=== PATIENT | female | born 1960 | race Caucasian/White ===

== ENCOUNTER 2018-03-01 19:43 | Emergency (ER) | payer OTHER, SELFPAY ==
[2018-03-01] MEDS ORDERED: HYDROCODONE/ACETAMINOPHEN 10/325 MG TAB ONE (20:17)
== END 2018-03-01 21:45 | disposition home or self-care (01) ==
LOC: EDH 19:43
DX: M51.36 Other intervertebral disc degeneration, lumbar region (principal); E78.5 Hyperlipidemia, unspecified; I10 Essential (primary) hypertension; J44.9 Chronic obstructive pulmonary disease, unspecified; Z90.710 Acquired absence of both cervix and uterus; Z98.890 Other specified postprocedural states; Z88.8 Allergy status to other drugs, medicaments and biological substances; Z79.82 Long term (current) use of aspirin; Z79.899 Other long term (current) drug therapy; Z72.0 Tobacco use
CPT/HCPCS: 72131; 93005

== ENCOUNTER 2020-04-06 02:13 | Inpatient (IN) | payer SELFPAY ==
[~2020-04-06] VITALS: Ht 157.5 cm; Wt 94.3 kg
[2020-04-06] MEDS ORDERED: MORPHINE SULFATE 2 MG/ML 1ML SYG ONE ×2 (02:24→07:55)
[2020-04-06 02:30] LABS: BASOPHILS % (AUTO) 0.7 % (0.0-5.0); EOSINOPHILS % (AUTO) 1.8 % (0.0-8.0); HEMATOCRIT 39.4 % (36-48); LYMPHOCYTES % (AUTO) 35.2 % (21.0-51.0); MEAN CORPUSCULAR HEMOGLOBIN 29.2 pg (27.0-33.0); MEAN CORPUSCULAR VOLUME 91.2 fL (79-99); MONOCYTES % (AUTO) 9.4 % (3.0-13.0); NEUTROPHILS % (AUTO) 52.5 % (40.0-77.0); PLATELET COUNT (AUTO) 311 K/uL (130-400); RED BLOOD CELL COUNT(AUTO) 4.32 MIL/uL (4.00-5.50); RED CELL DISTRIBUTION WIDTH 13.3 % (11.0-15.5); WHITE BLOOD COUNT (AUTO) 11.4 K/uL (4.8-10.8)
[2020-04-06 02:43] LABS: CREATININE 0.9 mg/dL (0.5-1.5); POTASSIUM 3.7 mmol/L (3.5-5.1)
[2020-04-06 02:48] LABS: ALBUMIN 3.1 g/dL (3.5-5.0); BILIRUBIN,TOTAL 0.2 mg/dL (0.2-1.0); TOTAL PROTEIN, SERUM 7.5 g/dL (6.0-8.3)
[2020-04-06 02:58] LABS: INR 0.88 (0.85-1.15); PARTIAL THROMBOPLASTIN TIME 28.2 SEC (26.3-35.5); PROTHROMBIN TIME 9.5 SEC (9.6-11.6)
[2020-04-06] MEDS ORDERED: IOHEXOL-350 75 ML VIAL IV ONE (03:35)
[2020-04-06] MEDS ORDERED: AZITHROMYCIN 500MG+NS 250ML 250 ML IV ONE (04:36)
[2020-04-06] MEDS ORDERED: CEFTRIAXONE SODIUM 1 GM ONE (04:36)
[2020-04-06 05:22] LABS: APPEARANCE,URINE Clear (CLEAR); BILIRUBIN,URINE Negative (NEGATIVE); COLOR,URINE Yellow (YELLOW); GLUCOSE, URINE (UA) Negative (NEGATIVE); KETONES,URINE Negative (NEGATIVE); LEUKOCYTE ESTERASE ,URINE Negative (NEGATIVE); NITRATE,URINE Negative (NEGATIVE); OCCULT BLOOD,URINE Negative (NEGATIVE); PH,URINE 5.5 (5.0-8.0); PROTEIN,URINE Negative (NEGATIVE); UROBILINOGEN,URINE 0.2 mg/dL (0.2-1.0)
[2020-04-06] MEDS ORDERED: GLUCAGON 1MG KIT 1 MG ML IM PRN (07:15)
[2020-04-06] MEDS ORDERED: DEXTROSE 50%-WATER 50 ML DISP.SYRIN IV PRN (07:15)
[2020-04-06] MEDS ORDERED: ACETAMINOPHEN 325 MG TAB PO PRN (07:15)
[2020-04-06] MEDS ORDERED: MORPHINE SULFATE 2 MG/ML 1ML SYG IVP PRN (07:15)
[2020-04-06] MEDS ORDERED: ENOXAPARIN SODIUM 30 MG/0.3 ML SQ ONE (09:56)
[2020-04-06] MEDS ORDERED: IBUPROFEN 800 MG TAB ONE (15:21)
[2020-04-06 15:32] VITALS: BP 126/76
[2020-04-06] MEDS: ENOXAPARIN SODIUM 30 MG/0.3 ML SQ SCH (16:00)
[2020-04-06] MEDS: INSULIN R PO SS1 SQ SCH ×4 (16:00→21:00)
[2020-04-06] MEDS ORDERED: LEVO-173 PO (19:13)
[2020-04-06] MEDS ORDERED: METO50TA18 PO (19:13)
[2020-04-06] MEDS ORDERED: SIMV-46 PO (19:13)
[2020-04-06] MEDS ORDERED: METO25TA6 PO (19:13)
[2020-04-06] MEDS ORDERED: ONDANSETRON 4 MG TABLET PO PRN (19:30)
[2020-04-06 20:20] VITALS: BP 137/65
--- NOTE | 2020-04-06 20:50 | NUR ---
Dr. Back came in to see patient, examined her and then gave orders to resume all home medications. No other orders received.
[2020-04-06] MEDS ORDERED: METOPROLOL TARTRATE 25 MG TAB PO SCH (21:00)
[2020-04-06] MEDS ORDERED: NON-FORMULARY MEDICATION 1 EACH (Simvastatin 40 MG) PO SCH (21:00)
[2020-04-06] MEDS ORDERED: SIMVASTATIN 20 MG TABLET PO SCH (21:15)
[2020-04-06 23:42] VITALS: BP 116/58
[2020-04-07 03:59] VITALS: BP 100/54
[2020-04-07] MEDS ORDERED: IBUP-2071 PO (04:42)
[2020-04-07] MEDS ORDERED: IBUPROFEN 800 MG TAB ONE (04:44)
[2020-04-07] MEDS ORDERED: IBUPROFEN 800 MG TAB PO PRN (04:45)
[2020-04-07] MEDS: INSULIN R PO SS1 SQ SCH ×3 (05:29→16:30)
[2020-04-07 05:59] LABS: HEMATOCRIT 37.6 % (36-48); MEAN CORPUSCULAR HEMOGLOBIN 28.7 pg (27.0-33.0); MEAN CORPUSCULAR HGB CONC 31.6 g/dL (32.0-36.0); MEAN CORPUSCULAR VOLUME 90.8 fL (79-99); RED BLOOD CELL COUNT(AUTO) 4.14 MIL/uL (4.00-5.50); RED CELL DISTRIBUTION WIDTH 13.4 % (11.0-15.5); WHITE BLOOD COUNT (AUTO) 10.2 K/uL (4.8-10.8)
[2020-04-07] MEDS ORDERED: AZITHROMYCIN 500MG+NS 250ML 250 ML IV SCH (06:00)
[2020-04-07] MEDS ORDERED: CEFTRIAXONE SODIUM 1 GM IVP SCH (06:00)
[2020-04-07 06:03] LABS: HEMOGLOBIN A1C 6.1 % (4.0-6.0)
[2020-04-07 06:13] LABS: CREATININE 0.8 mg/dL (0.5-1.5); MAGNESIUM 1.9 mg/dL (1.80-2.40)
[2020-04-07] MEDS ORDERED: LEVOTHYROXINE 125 MCG TABLET PO SCH (06:30)
[2020-04-07 08:14] VITALS: BP 114/62
[2020-04-07] MEDS: ENOXAPARIN SODIUM 30 MG/0.3 ML SQ SCH (08:27)
[2020-04-07] MEDS ORDERED: METOPROLOL TARTRATE 50 MG TAB PO SCH (09:00)
[2020-04-07 12:00] VITALS: BP 116/49
[2020-04-07 16:37] VITALS: BP 117/74
--- NOTE | 2020-04-07 16:38 | NUR ---
INITIAL: Met with pt this afternoon to discuss dcp. pt mentions that she lives w her spouse. Prior to admission she was independent w ambulation and ADLs. She is able to drive where needed. Pt mentions that she feels safe and comfortable to return home at ct. Provided low income packet. CM to continue to follow and wait for Md recommendations. Addendum: 04/07/20 at 1639 by RUBEN CLARK Amended: Links added.
--- NOTE | 2020-04-09 14:30 | NUR ---
TRANSITIONAL CARE - POST-DISCHARGE NOTE Spoke to patient at number on file. As per Mrs Victoria, she is "doing awesome." She states she is taking her discharge medications as ordered. According to Mrs Victoria, she is waiting for Dr Smith to call her for follow up. Mrs Victoria does not report CP, SOB, N/V/D, fevers/chills.
== END 2020-04-07 17:05 | disposition home or self-care (01) | DRG 194 ==
LOC: EDH 02:13 → EDHIP 02:14 → 3DH 14:52
PROVIDERS: ADMIT Internal Medicine; ATTEND Internal Medicine
DX: J18.9 Pneumonia, unspecified organism (principal); J44.0 Chronic obstructive pulmonary disease with (acute) lower respiratory infection; E03.9 Hypothyroidism, unspecified; E78.5 Hyperlipidemia, unspecified; F17.200 Nicotine dependence, unspecified, uncomplicated; I73.9 Peripheral vascular disease, unspecified; I10 Essential (primary) hypertension; K21.9 Gastro-esophageal reflux disease without esophagitis; Z88.8 Allergy status to other drugs, medicaments and biological substances
CPT/HCPCS: 36415; 71045; 71275; 80048; 80053; 81003; 82550; 82948; 83036; 83735; 84484; 85025; 85027; 85610; 85730; 87040; 93005; G0378; J0456; J0696; J1650; Q9967

== ENCOUNTER 2022-10-14 18:38 | Inpatient (IN) | payer OTHER ==
[~2022-10-14] VITALS: Ht 160 cm; Wt 93.0 kg
[~2022-10-14 18:38] MED LIST: IBUP-2071 PO; LEVO-173 PO; METO25TA6 PO; METO50TA18 PO; SIMV-46 PO
[2022-10-14 19:58] LABS: BASOPHILS % (AUTO) 0.7 % (0.0-5.0); EOSINOPHILS % (AUTO) 1.5 % (0.0-8.0); HEMATOCRIT 41.2 % (36-48); LYMPHOCYTES % (AUTO) 36.3 % (21.0-51.0); MEAN CORPUSCULAR HEMOGLOBIN 28.6 pg (27.0-33.0); MEAN CORPUSCULAR HGB CONC 32.3 g/dL (32.0-36.0); MEAN CORPUSCULAR VOLUME 88.6 fL (79-99); MONOCYTES % (AUTO) 9.8 % (3.0-13.0); NEUTROPHILS % (AUTO) 51.3 % (40.0-77.0); PLATELET COUNT (AUTO) 315 K/uL (130-400); RED BLOOD CELL COUNT(AUTO) 4.65 MIL/uL (4.00-5.50); RED CELL DISTRIBUTION WIDTH 14.1 % (11.0-15.5); WHITE BLOOD COUNT (AUTO) 11.3 K/uL (4.8-10.8)
[2022-10-14 20:02] LABS: APPEARANCE,URINE CLEAR (CLEAR); BILIRUBIN,URINE NEGATIVE (NEGATIVE); COLOR,URINE COLORLESS (YELLOW); GLUCOSE, URINE (UA) NEGATIVE (NEGATIVE); KETONES,URINE NEGATIVE (NEGATIVE); LEUKOCYTE ESTERASE ,URINE NEGATIVE Leu/uL (NEGATIVE); NITRATE,URINE NEGATIVE (NEGATIVE); OCCULT BLOOD,URINE NEGATIVE (NEGATIVE); PH,URINE 6.5 (5.0-8.0); PROTEIN,URINE NEGATIVE (NEGATIVE); UROBILINOGEN,URINE 0.2 mg/dL (0.2-1.0)
[2022-10-14 20:04] LABS: RBC,URINE 0-1 /HPF (0-1); SQUAMOUS EPITHELIAL CELL,UR RARE /HPF (0-2); WBC,URINE 0-1 /HPF (0-1)
[2022-10-14 20:06] LABS: CREATININE 0.8 mg/dL (0.5-1.5)
[2022-10-14 20:18] LABS: ALBUMIN 3.6 g/dL (3.5-5.0); TOTAL PROTEIN, SERUM 7.4 g/dL (6.0-8.3)
[2022-10-14] MEDS ORDERED: NITROGLYCERIN 1GM OINT 1 INCH/1GM TD ONE (23:30)
[2022-10-14] MEDS ORDERED: MORPHINE 2 MG SYG IVP ONE (23:30)
[2022-10-14] MEDS ORDERED: ASPIRIN 325MG TAB PO ONE (23:30)
[2022-10-14] MEDS ORDERED: ACETAMINOPHEN 500 MG TABLET ONE (23:42)
[2022-10-15] MEDS ORDERED: ACETAMINOPHEN 500 MG TABLET PO ONE
[2022-10-15] MEDS ORDERED: HYDROCODONE/ACETAMINOPHEN 5/325 MG TAB PO PRN (00:30)
[2022-10-15] MEDS ORDERED: ACETAMINOPHEN 650 MG SUPPOSITORY RC PRN (00:30)
[2022-10-15] MEDS ORDERED: ALBUTEROL 0.083% 2.5 MG/3 ML INH IH PRN (00:30)
[2022-10-15] MEDS ORDERED: ONDANSETRON 4MG INJ IVP PRN (00:30)
[2022-10-15] MEDS ORDERED: HYDRALAZINE 20MG/ML VIAL IV PRN (00:30)
[2022-10-15] MEDS ORDERED: OMEP40CA21 PO (00:32)
[2022-10-15] MEDS ORDERED: CHLO4TAB32 PO (00:32)
[2022-10-15] MEDS ORDERED: FOLI400T4 PO (00:32)
[2022-10-15 07:21] LABS: HEMATOCRIT 38.8 % (36-48); MEAN CORPUSCULAR VOLUME 90.9 fL (79-99); RED BLOOD CELL COUNT(AUTO) 4.27 MIL/uL (4.00-5.50); RED CELL DISTRIBUTION WIDTH 14.2 % (11.0-15.5); WHITE BLOOD COUNT (AUTO) 9.3 K/uL (4.8-10.8)
[2022-10-15 07:36] LABS: CREATININE 0.8 mg/dL (0.5-1.5); PHOSPHORUS 4.1 mg/dL (2.5-4.9); POTASSIUM 3.9 mmol/L (3.5-5.1)
[2022-10-15] MEDS: ASPIRIN 81MG CHEW TAB PO SCH (08:17)
[2022-10-15] MEDS: ENOXAPARIN SODIUM 30 MG/0.3 ML SQ SCH (08:17)
[2022-10-15] MEDS: ACETAMINOPHEN 325 MG TAB PO PRN ×2 (08:51→18:02)
[2022-10-15] MEDS: PANTOPRAZOLE 40 MG/VIAL IVP SCH (09:17)
[2022-10-15 16:50] VITALS: BP 127/60
[2022-10-15 19:00] VITALS: BP 128/57
[2022-10-15] MEDS: ATORVASTATIN 40 MG TABLET PO SCH (19:41)
[2022-10-15] MEDS: LIDOCAINE HCL 2% VISCOUS 30 ML, MAG/ALUM/SIMETH 30ML 30 ML, DICYCLOMINE HCL 20 MG PO SCH ×3 (19:41)
[2022-10-15 23:06] VITALS: BP 144/69
[2022-10-16 04:00] VITALS: BP 107/59
[2022-10-16 06:44] LABS: BASOPHILS % (AUTO) 0.6 % (0.0-5.0); EOSINOPHILS % (AUTO) 1.9 % (0.0-8.0); HEMATOCRIT 40.2 % (36-48); LYMPHOCYTES % (AUTO) 47.7 % (21.0-51.0); MEAN CORPUSCULAR HEMOGLOBIN 28.9 pg (27.0-33.0); MEAN CORPUSCULAR HGB CONC 31.8 g/dL (32.0-36.0); MEAN CORPUSCULAR VOLUME 90.7 fL (79-99); MONOCYTES % (AUTO) 11.2 % (3.0-13.0); NEUTROPHILS % (AUTO) 38.4 % (40.0-77.0); PLATELET COUNT (AUTO) 256 K/uL (130-400); RED BLOOD CELL COUNT(AUTO) 4.43 MIL/uL (4.00-5.50); WHITE BLOOD COUNT (AUTO) 8.6 K/uL (4.8-10.8)
[2022-10-16 06:52] LABS: CREATININE 0.7 mg/dL (0.5-1.5); MAGNESIUM 1.9 mg/dL (1.80-2.40); POTASSIUM 3.7 mmol/L (3.5-5.1)
[2022-10-16 08:47] VITALS: BP 151/85
[2022-10-16] MEDS: LIDOCAINE HCL 2% VISCOUS 30 ML, MAG/ALUM/SIMETH 30ML 30 ML, DICYCLOMINE HCL 20 MG PO SCH ×9 (09:00→21:00)
[2022-10-16] MEDS: ENOXAPARIN SODIUM 30 MG/0.3 ML SQ SCH (09:00)
[2022-10-16] MEDS: PANTOPRAZOLE 40 MG/VIAL IVP SCH (09:11)
[2022-10-16] MEDS: ASPIRIN 81MG CHEW TAB PO SCH (09:11)
[2022-10-16] MEDS: IBUPROFEN 600 MG TABLET PO PRN ×2 (09:22→22:10)
[2022-10-16 12:00] VITALS: BP 138/76
[2022-10-16 16:00] VITALS: BP 154/92
[2022-10-16 19:00] VITALS: BP 156/83
[2022-10-16] MEDS ORDERED: METOPROLOL TARTRATE 25 MG TAB PO SCH (21:00)
[2022-10-16] MEDS ORDERED: SIMVASTATIN 40 MG PO SCH (21:00)
[2022-10-16] MEDS: ATORVASTATIN 40 MG TABLET PO SCH (22:10)
[2022-10-17 00:02] VITALS: BP 122/76
[2022-10-17 04:00] VITALS: BP 134/67
[2022-10-17] MEDS ORDERED: REGADENOSON 0.4 MG/5 ML PF SYG IVP SCH (07:00)
[2022-10-17] MEDS: ASPIRIN 81MG CHEW TAB PO SCH (09:00)
[2022-10-17] MEDS ORDERED: LEVOTHYROXINE 125 MCG TABLET PO SCH (09:00)
[2022-10-17] MEDS ORDERED: METOPROLOL TARTRATE 50 MG TAB PO SCH (09:00)
[2022-10-17] MEDS: IBUPROFEN 600 MG TABLET PO PRN (09:00)
[2022-10-17 09:14] VITALS: BP 117/69
[2022-10-17 11:35] VITALS: BP 120/65
[2022-10-17 16:41] VITALS: BP 141/95
[2022-10-17] MEDS ORDERED: PANT20TA18 PO (17:45)
[2022-10-17] MEDS ORDERED: ASPI-1005 PO (17:45)
== END 2022-10-17 18:45 | disposition home or self-care (01) | DRG 313 ==
LOC: EDH 18:38 → EDHIP 18:39 → OBSVTOIN 18:39 → 3BH 10-15 16:50
PROVIDERS: ADMIT Internal Medicine Critical Care Medicine; ATTEND Internal Medicine Critical Care Medicine
DX: R07.89 Other chest pain (principal); I10 Essential (primary) hypertension; Z20.822 Contact with and (suspected) exposure to COVID-19; Z68.36 Body mass index [BMI] 36.0-36.9, adult; E66.01 Morbid (severe) obesity due to excess calories; I25.10 Atherosclerotic heart disease of native coronary artery without angina pectoris; F17.210 Nicotine dependence, cigarettes, uncomplicated; E88.81 Metabolic syndrome and other insulin resistance; E78.00 Pure hypercholesterolemia, unspecified; E89.0 Postprocedural hypothyroidism; Z79.82 Long term (current) use of aspirin; Z95.5 Presence of coronary angioplasty implant and graft; Z79.899 Other long term (current) drug therapy
CPT/HCPCS: 36415; 71045; 78452; 80048; 80053; 81001; 82550; 83735; 83874; 83880; 84100; 84484; 85025; 85027; 87635; 87804; 93005; 93017; 93306; 93356; 94664; 96374; A9500; C9113; C9803; G0378; J1650; J2270; J2785

== ENCOUNTER → 2024-03-07 | Outpatient (CLI) | payer OTHER ==
[~2024-03-07] MED LIST changes: +ASPI-1005 PO; +CHLO4TAB32 PO; +FOLI400T4 PO; +OMEP40CA21 PO; +PANT20TA18 PO
== END | disposition home or self-care (01) ==
LOC: SHCH 13:06
PROVIDERS: ATTEND Student in an Organized Health Care Education/Training Program
DX: I73.9 Peripheral vascular disease, unspecified (principal); I87.2 Venous insufficiency (chronic) (peripheral)
CPT/HCPCS: 93925; 93970

== ENCOUNTER → 2024-03-17 | Outpatient (CLI) | payer OTHER ==
[2024-03-17 12:27] LABS: ALBUMIN 3.2 g/dL (3.5-5.0); BILIRUBIN,TOTAL 0.3 mg/dL (0.2-1.0); CREATININE 0.8 mg/dL (0.5-1.0); POTASSIUM 4.9 mmol/L (3.5-5.1); TOTAL PROTEIN, SERUM 7.4 g/dL (6.0-8.3)
== END | disposition home or self-care (01) ==
LOC: LAB 08:25
PROVIDERS: ATTEND Student in an Organized Health Care Education/Training Program
DX: R07.89 Other chest pain (principal)
CPT/HCPCS: 36415; 80053

== ENCOUNTER → 2024-03-24 | Outpatient (CLI) | payer OTHER ==
[~2024-03-24] MED LIST changes: +IOHEXOL 350 MG/ML 100ML INFUS..BTL IV ONE; +metoPROLOL tartRATE 1 MG/ML 5ML VIAL IV ONE
--- NOTE | 2024-03-24 12:42 | HMCIMG ---
CT CARDIAC ANGIO W/CONT. CCTA HISTORY: Dyspnea COMPARISON: None TECHNIQUE: Multiple sequential axial images of the chest were obtained along with the CT angiogram of the chest study. Patient was given 100 cc of Omnipaque through intravenous route. FINDINGS: There is no evidence of pulmonary nodule or parenchymal disease. No pleural effusion or pericardial effusion is seen. There is no evidence of pneumothorax. There are normal size mediastinal and hilar lymph nodes. The heart is not enlarged. Degenerative changes of the thoracolumbar spine are present. IMPRESSION: 1. No evidence of pulmonary nodule or effusion is seen. Please see CT angiogram report of coronary arteries.
== END | disposition home or self-care (01) ==
LOC: RAH 09:59
PROVIDERS: ATTEND Student in an Organized Health Care Education/Training Program
DX: R07.9 Chest pain, unspecified (principal); M47.815 Spondylosis without myelopathy or radiculopathy, thoracolumbar region
CPT/HCPCS: 75574; J3490 ×2; Q9967 ×2

== ENCOUNTER 2024-05-11 08:57 | Observation (INO) | payer OTHER ==
[2024-05-09 12:07] VITALS: BP 150/69; PULSE 75; RESP 18; TEMP 97.3
[2024-05-09 12:13] LABS: BASOPHILS # (AUTO) 0.07 K/uL (0.00-0.20); BASOPHILS % (AUTO) 0.6 % (0.0-5.0); EOSINOPHILS # (AUTO) 0.18 K/uL (0.00-0.70); EOSINOPHILS % (AUTO) 1.7 % (0.0-8.0); HEMATOCRIT 43.1 % (36-48); IMMATURE GRANULOCYTE ABSOLUTE 0.05 K/uL (0-1); LYMPHOCYTES % (AUTO) 36.6 % (21.0-51.0); MEAN CORPUSCULAR HEMOGLOBIN 28.2 pg (27.0-33.0); MEAN CORPUSCULAR HGB CONC 31.1 g/dL (32.0-36.0); MEAN CORPUSCULAR VOLUME 90.7 fL (79-99); MONOCYTES # (AUTO) 1.2 K/uL (0.1-1.0); MONOCYTES % (AUTO) 11.5 % (3.0-13.0); NEUTROPHILS # (AUTO) 5.3 K/uL (1.8-7.7); NEUTROPHILS % (AUTO) 49.1 % (40.0-77.0); PLATELET COUNT (AUTO) 293 K/uL (130-400); RED BLOOD CELL COUNT(AUTO) 4.75 MIL/uL (4.00-5.50); RED CELL DISTRIBUTION WIDTH 14.5 % (11.0-15.5); WHITE BLOOD COUNT (AUTO) 10.8 K/uL (4.8-10.8)
[2024-05-09 12:26] LABS: INR <= 0.93 (0.85-1.15); PROTHROMBIN TIME 10.1 SEC (9.6-11.6)
[2024-05-09 12:27] LABS: CREATININE 0.7 mg/dL (0.5-1.0); POTASSIUM 4.8 mmol/L (3.5-5.1)
[2024-05-09 12:28] LABS: PARTIAL THROMBOPLASTIN TIME 27.1 SEC (26.3-35.5)
[2024-05-09 12:37] LABS: B-TYPE NATRIURETIC PEPTIDE 32 pg/mL (0-100)
--- NOTE | 2024-05-09 13:26 | HMCIMG ---
CHEST 1VW HISTORY: Preop COMPARISON: 10/14/2022 FINDINGS: A frontal projection of the chest was obtained. No acute pulmonary infiltrates is seen. The heart is normal in size. Degenerative changes are seen. Postop changes are seen of the cervical spine. No evidence of aortic calcification is seen. IMPRESSION: 1. No acute pulmonary infiltrate is seen.
--- NOTE | 2024-05-09 14:22 | EKG ---
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
[2024-05-11] VITALS (12 sets, daily range): BP systolic 114–141; BP diastolic 56–72; PULSE 78–89; RESP 11–19; TEMP 96.9–98.7; O2SAT 96
[~2024-05-11] VITALS: Ht 157.5 cm; Wt 89.9 kg
[~2024-05-11 08:57] MED LIST changes: -ASPI-1005 PO; +ASPI-1146 PO; -CHLO4TAB32 PO; +GABA300C PO; -IBUP-2071 PO; -IOHEXOL 350 MG/ML 100ML INFUS..BTL IV ONE; -PANT20TA18 PO; -metoPROLOL tartRATE 1 MG/ML 5ML VIAL IV ONE
--- NOTE | 2024-05-11 10:03 | NUR ---
consult; DR. JUSTA MILLS MADE AWARE OF PT COMPLAINING OF CHEST PAIN, ORDERS GIVEN.
[2024-05-11] MEDS: 0.9%NACL 1000ML 1,000 ML IV SCH ×2 (10:05→13:30)
[2024-05-11] MEDS ORDERED: LIDOCAINE HCL 400MG/20ML VIAL ONE (10:07)
[2024-05-11] MEDS ORDERED: HEParin-NS 1,000 UNIT/500 ML 1,000 ML IV ONE (10:07)
[2024-05-11] MEDS ORDERED: VERAPAMIL HCL 2.5 MG/ML VIAL ONE (10:07)
[2024-05-11] MEDS ORDERED: IOHEXOL 350 MG/ML 100ML INFUS..BTL IV ONE ×3 (10:07→12:30)
[2024-05-11] MEDS ORDERED: HEParin 10,000 UNIT/10ML (1,000 UNIT/ML) VIAL ONE ×2 (10:07→13:12)
[2024-05-11] MEDS ORDERED: NITROGLYCERIN 50MG VIAL ONE (10:08)
--- NOTE | 2024-05-11 10:18 | EKG ---
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
[2024-05-11] MEDS ORDERED: FENTanyl CITRate PF 50 MCG/1 ML 2ML VIAL ONE (10:22)
[2024-05-11] MEDS ORDERED: MIDAZOLAM HCL 1 MG/ML 2ML VIAL ONE ×2 (10:22→10:56)
[2024-05-11] MEDS ORDERED: cloPIDOgrel 300MG TAB ONE (10:54)
[2024-05-11] MEDS ORDERED: ASPIRIN 325MG EC TAB PO ONE (10:54)
[2024-05-11] MEDS ORDERED: EPTIFIBATIDE 75MG/100ML BOTTLE 100 ML IV ONE (10:55)
[2024-05-11] MEDS ORDERED: EPTIFIBATIDE 2 MG/ML 10 ML VIAL IVP ONE (10:55)
[2024-05-11] MEDS ORDERED: ATROPINE 1MG SYG IVP ONE (11:43)
[2024-05-11] MEDS ORDERED: HEParin-NS 1,000 UNIT/500 ML 500 ML IV ONE (12:57)
[2024-05-11] MEDS ORDERED: DEXTROSE 50%-WATER 50 ML DISP.SYRIN IV PRN (13:30)
[2024-05-11] MEDS ORDERED: GLUCAGON 1MG KIT 1 MG ML IM PRN (13:30)
--- NOTE | 2024-05-11 13:50 | PRN ---
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 A 6 Ukrainian arterial sheath was inserted in the right radial artery using ultrasound guidance with first pass wall puncture. The arterial sheath was aspirated and flushed. A 6 Ukrainian JL 3.5 was then advanced to the ascending aorta over an exchange length J-tip guidewire, was aspirated and flushed, and was used for selective coronary angiograms in multiple obliquities. A JR-4 was advanced in a similar fashion to the ascending aorta over the J-tipped guidewire and was used for selective right coronary angiograms in multiple oblique views with findings as outlined below. The JR-4 catheter advanced into the LV and pressures were obtained with a pull-back across the aortic valve. 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 We provided a total of 9000 units of IV heparin in addition to loading doses of aspirin and Plavix in addition to loading doses of IV Integrilin bolus infusion during the procedure. Following therapeutic ACT we advanced a Prowater within a six Ukrainian JR4 guide which was used to select engage the right coronary artery. Given her heavily calcified disease we then used a guide liner for additional support and we placed a Prowater within a fine cross microcatheter. We are met with significant resistance traversing the AUTOMOBILE SEAT COVER INSTALLER and began wire escalation technique with a Fielder XT with similar results. At this time due to lack of guide catheter support the decision was made to transition to a six Ukrainian a ART guide catheter which was used to select engage the RCA. In similar fashion we used a Prowater with an AV quick cross microcatheter to attempt to traverse the mid RCA AUTOMOBILE SEAT COVER INSTALLER with similar results. We exchanged this for a Fielder XT traversing the AUTOMOBILE SEAT COVER INSTALLER. We then advanced a quick cross microcatheter into the distal PLV and exchanged the Fielder XT for a supportive wiggle wire. We were unable to advance any balloons over this wire so following multiple failed attempts we exchanged the wire for a iron man. At this time we began using a 1.25 x 10 compliant balloon which we are unable to advance beyond the proximal RCA despite using guide liners and more aggressive catheters. At this time we noted a proximal RCA dissection. Patient endorsed 6/10 anterior chest pressure with no acute ischemic changes on her ECG. At this time we advanced further balloons with similar results unable to advance the balloon beyond the mid RCA segment. Finally we used a 2 x 20 mm compliant balloon which was advanced within the proximal RCA and was deployed to nominal pressures for a total of 45 seconds. We noted shinto of ALEX two flow with ongoing RCA dissection section. Patient's chest pressure had resolved and there was no EKG changes and she remained hemodynamically stable. At this time given excess contrast and radiation exposure the decision was made to terminate the procedure at medically manage patient's proximal RCA dissection. All wires and catheters removed from the body and A TR band was placed over right radial artery. Patient tolerated procedure well and was transferred to label coder holding in stable condition where she will be monitored in PCU overnight FLUOROSCOPY TIME: 77.8 min LEFT HEART HEMODYNAMICS: LVEDP 16 mm Hg and no gradient Ao CORONARY ANGIOGRAM: LEFT MAIN: Patent and 0% stenosis. Gives rise to LCx and LAD. LEFT ANTERIOR DESCENDING: Large vessel giving rise to two Diagonal branches. Diffusely calcified with no obstructive disease. Diagonals are patent. Distal LAD provides epra-ve-pwtby collaterals to the RCA LEFT CIRCUMFLEX: Large and gives rise to two OM branches. Diffusely calcified with an ostial 70% stenosis followed by 60% proximal stenosis. OM2 are patent RIGHT CORONARY ARTERY: Large, codominant vessel giving rise to PDA and PL branches. Diffusely and heavily calcified with an 80% proximal lesion becoming 100% AUTOMOBILE SEAT COVER INSTALLER in the mid segment. The distal PDA and PLB fills via deyr-jc-dfufb collaterals from the LAD and left circ. HEMOSTASIS: TR band 12 lasha over right radial artery INTERVENTIONS: Status post PTCA of the proximal RCA (2 x 20 mm compliant balloon to nominal pressures) COMPLICATIONS: Proximal RCA dissection which was managed by PTCA FINDINGS: Normal coronary anatomy and severe obstructive RCA disease with failed revascularization of his mid RCA AUTOMOBILE SEAT COVER INSTALLER Case complicated by catheter induced proximal RCA dissection which was treated with PTCA, we are unable to advance any stents due to her significant disease ESTIMATED BLOOD LOSS: 5 cc RECOMMENDATIONS/INSTRUCTIONS: Aggressive risk factor modification and we will admit patient to PCU overnight to monitor her symptoms and repeat ECG If patient remains asymptomatic we will discharge tomorrow with further optimization a GDT in addition to adapt (aspirin 81 mg q.day/Plavix 75 mg q.day) for a total of six months. If patient remains symptomatic we will plan for staged revascularization of her RCA via the right common femoral artery with a 7-8 Ukrainian system CONTRAST DELIVERED TO PATIENT (mL): 340cc MD GENE Lawton JAMES R MD May 11, 2024 13:50
--- NOTE | 2024-05-11 14:00 | NUR ---
URINARY: voided 400cc yellow color urine per bedpan without difficulty
--- NOTE | 2024-05-11 16:14 | NUR ---
URINARY: VOIDED 300CC CLEAR YELLOW COLOR URINE VIA BEDPAN WITHOUT DIFFICULTY.
--- NOTE | 2024-05-11 16:52 | NUR ---
VASC BAND: VASC BAND REMOVED WITH NO ACTIVE BLEEDING PRESENT. CLEANSED AREA WITH CHLOR PREP FOLLOWED BY APPLYING STERILE 2X2 GAUZE THAN 2X2 TEGADERM. NO REDNESS/SWELLING NOTED TO SURROUNDING AREA RT WRIST.
--- NOTE | 2024-05-11 17:13 | NUR ---
REPORT: REPORT GIVEN TO ANOOP WILEY RN.
[2024-05-11] MEDS ORDERED: METO50TA9 PO ×2 (17:57)
[2024-05-11] MEDS ORDERED: CLOP-31 PO ×2 (17:57)
--- NOTE | 2024-05-11 19:04 | HP ---
History of Present Illness Reason for Visit: cad Past Medical History Patient History: Carcinomas MOTHER Cardiovascular disease MOTHER FATHER FH: bipolar disorder DAUGHTER FH: hyperlipidemia BROTHER FHx: brain aneurysm SISTER ADDITIONAL PAST MEDICAL HISTORY: [] SOCIAL HISTORY: [] SURGICAL HISTORY: [] Review of Systems Allergies: Coded Allergies: dexamethasone (Verified Allergy, Unknown, 08/24/13) Scheduled Clopidogrel Bisulfate (Plavix), 75 MG PO AM, (Reported) Folic Acid/Vitamin B Comp W-C (Super B-Complex Folic-Vit C Tb), 400 MCG PO HS, (Reported) Gabapentin (Neurontin), 300 MG PO BID, (Reported) Levothyroxine Sodium (Euthyrox), 125 MCG PO ACBKFST, (Reported) Metoprolol Succinate (Toprol Xl), 50 MG PO BID, (Reported) Omeprazole (Omeprazole), 40 MG PO HS, (Reported) Simvastatin (Simvastatin), 40 MG PO HS, (Reported) Discontinued Medications Aspirin (Aspirin 81MG Chew Tab), 81 MG PO DAILY Aspirin (Ecotrin), 325 MG PO HS, (Reported) Chlorpheniramine Maleate (Chlorpheniramine Maleate), 4 MG PO BID, (Reported) Ibuprofen (Ibuprofen), 800 MG PO Q6H PRN for PAIN, (Reported) Metoprolol Tartrate (Metoprolol Tartrate), 50 MG PO AM, (Reported) Metoprolol Tartrate (Metoprolol Tartrate), 25 MG PO HS, (Reported) Pantoprazole Sodium (Pantoprazole Sodium), 20 MG PO DAILYBKFST Exam Vital Signs Vital Signs Date Time Temp Pulse Resp B/P (MAP) Pulse Ox O2 Delivery O2 Flow Rate FiO2 05/11/24 18:37 96 Room Air* 0 21 05/11/24 17:50 97.5 87 16 141/67 Assessment/Plan ASSESSMENT: [] PLAN: [] JU MAYORGA May 11, 2024 19:04
--- NOTE | 2024-05-11 20:15 | NUR ---
DR URBANO AWARE OF PT ADMITTED TO HIS SERVICES
[2024-05-12] VITALS: BP 118/103; PULSE 97; RESP 18; TEMP 98.4
[2024-05-12 04:00] VITALS: BP 138/61; PULSE 105; RESP 18; TEMP 98.1
[2024-05-12] MEDS: levoTHYROxine 125 MCG TABLET PO SCH (06:46)
[2024-05-12 08:00] VITALS: O2SAT 96
[2024-05-12 08:24] VITALS: BP 102/70; PULSE 104; RESP 16; TEMP 98.6
[2024-05-12 08:49] LABS: HEMATOCRIT 41.3 % (36-48); MEAN CORPUSCULAR HEMOGLOBIN 27.9 pg (27.0-33.0); MEAN CORPUSCULAR HGB CONC 31.7 g/dL (32.0-36.0); MEAN CORPUSCULAR VOLUME 87.9 fL (79-99); RED BLOOD CELL COUNT(AUTO) 4.7 MIL/uL (4.00-5.50); RED CELL DISTRIBUTION WIDTH 14.6 % (11.0-15.5)
[2024-05-12 08:59] LABS: CREATININE 0.8 mg/dL (0.5-1.0); POTASSIUM 3.9 mmol/L (3.5-5.1)
[2024-05-12] MEDS: ASPIRIN 81MG CHEW TAB PO SCH (09:13)
[2024-05-12] MEDS: cloPIDOgrel 75MG TAB PO SCH (09:13)
[2024-05-12] MEDS: GABAPENTIN 300 MG CAPSULE PO SCH (09:13)
[2024-05-12] MEDS: metOPROLol sucCINATE 50 MG TAB.SR.24H PO SCH (09:13)
[2024-05-12 11:00] VITALS: BP 146/78; PULSE 117; RESP 20; TEMP 98
--- NOTE | 2024-05-12 11:30 | PN ---
[facility] CARDIOLOGY PROGRESS NOTE Date Patient Seen: May 12, 2024 Time of Visit: 11:16 Problem List: [Hypertension Hyperlipidemia CAD status post coronary stent placement about (25-30 years ago) ] Interval History: [No acute events overnight . The patient underwent elective coronary angiogram on 05/11/2044 which showed Normal coronary anatomy and severe obstructive RCA disease with failed revascularization of his mid RCA MILK COLLECTOR. Case complicated by catheter induced proximal RCA dissection which was treated with PTCA, we are unable to advance any stents due to her significant disease. Today the patient is assessed at the bedside, currently denies any chest pain, palpitations, dyspnea or any other anginal complaints. Repeat ECG showed sinus rhythm with no ST-T wave abnormalities. ] Physical Examination: GENERAL: [No acute distress.] HEAD: [Normal with no signs of head trauma.] EYES: [PERRLA, EOMI, conjunctiva and sclera normal.] ENT: [Hearing grossly intact, normal oropharynx.] NECK: [Supple without JVD. There is no tenderness, lymphadenopathy, or masses. No thyromegaly. Normal carotid upstrokes without bruits.] LUNGS: [Clear breath sounds bilaterally. There are right basilar rales one third of the way up the chest. No wheezes, or rhonchi.] HEART: [Normal rate and rhythm. Normal S1 and S2 without mumurs, gallop or rub.] VASC: [Peripheral pulses +2 bilaterally.] ABD: [Bowel sounds normal, soft, nontender, no masses, no organomegaly. No audible bruits.] : [Not examined] LYMPH: [No lymphadenopathy noted.] EXT: [No clubbing, cyanosis or edema.] SKIN: [No rashes or lesions noted.] NEURO: [Awake, alert, and oriented x3. No focal sensory or strength deficits noted.] Laboratory: [ ] Hematology Labs: Test 05/12/24 08:30 Range/Units White Blood Count 9.0 4.8-10.8 K/uL Red Blood Count 4.70 4.00-5.50 MIL/uL Hemoglobin 13.1 12.0-16.0 g/dL Hematocrit 41.3 36-48 % Mean Corpuscular Volume 87.9 79-99 fL Mean Corpuscular Hemoglobin 27.9 27.0-33.0 pg Mean Corpuscular Hemoglobin Concent 31.7 L 32.0-36.0 g/dL Red Cell Distribution Width 14.6 11.0-15.5 % Platelet Count 282 130-400 K/uL Mean Platelet Volume 9.0 7.5-10.5 fL Nucleated Red Blood Cells 0.0 0.0-0.19 % Chemistry Labs: Test 05/12/24 08:30 Range/Units Sodium Level 139 136-145 mmol/L Potassium Level 3.9 3.5-5.1 mmol/L Chloride Level 102 101-111 mmol/L Carbon Dioxide Level 28 21-32 mmol/L Blood Urea Nitrogen 12 7-18 mg/dL Creatinine 0.8 0.5-1.0 mg/dL Glomerular Filtration Rate Calc 81 >90 mL/min Random Glucose 146 H 70-105 mg/dL Total Calcium 9.2 8.5-10.1 mg/dL Diagnostics / Radiology: [Copy/Paste Echos/Imaging Report here] Impression and Plan: Hypertension Hyperlipidemia CAD status post coronary stent placement about (25-30 years ago) [place] [facility] [place] due to CAD She has a prior Lexiscan stress test that was normal on 10/2022 Prior Coronary CTA that showed , prox -mid lad ( 20-30 % ) , DESLCx with in- stent re-stenosis of 70 % TTE that showed EF 50-55 % , no wall motion or valvular abnormalities ( 03-18- ) The patient underwent elective coronary angiogram on 05/11/2044 which showed Normal coronary anatomy and severe obstructive RCA disease with failed revascularization of his mid RCA MILK COLLECTOR. Case complicated by catheter induced proximal RCA dissection which was treated with PTCA, we are unable to advance any stents due to her significant disease. Aggressive risk factor modification is Recommended The patient was admitted to to PCU overnight to monitor her symptoms and repeat ECG Today the patient denies any, chest pain, palpitations, dyspnea or any other general complaints. ECG shows sinus rhythm with nonspecific ST-T wave abnormalities If patient remains asymptomatic we will discharge today with further optimizatio n a GDT in addition to DAPT (aspirin 81 mg q.day/Plavix 75 mg q.day) for a total of six months. Continue Toprol-XL 50 mg daily, Lipitor 40 mg nightly Thank you for this consult cardiology will sign off at this time the patient will follow-up in clinic 1 to 2 weeks after discharge. Frandy Ramirez MD ATTESTATION BY PHYSICIAN I have seen and examined the patient, reviewed the above documentation, participated in medical decision making, made necessary modifications, and agree with the treatment plan as documented by my mid-level provider above. MD GENE Bernal JAMES R MD May 12, 2024 11:30
--- NOTE | 2024-05-12 19:41 | DS ---
DATE OF SERVICE: 05/12/2024 DISCHARGE SUMMARY PRESENTING COMPLAINT: Chest pain. HOSPITAL COURSE: A 64-year-old female with angina, was admitted for elective cardiac catheterization. The patient found to have dissection and stenting cannot be done. The patient is doing well clinically. The patient has no chest pain, no shortness of breath. Tolerating orally. The patient is cleared for discharge. The patient has been given prescription for Toprol and Plavix by Cardiology. FINAL DISCHARGE DIAGNOSES: * Angina pectoris. * Hypertension. * Hypothyroidism. * Obesity. * History of chronic tobacco use. PLAN: * The patient to be discharged home. * Continue antihypertensive. * Continue antiplatelet. * Continue Synthroid. * Follow up with primary care physician. * Follow up with technology teacher. TID: [id number] RECEIPT: [id number] MTDD
[2024-05-12] MEDS ORDERED: simVASTatin 20 MG TABLET PO SCH (21:00)
--- NOTE | 2024-05-12 22:20 | HP ---
DATE OF SERVICE: 05/11/2024 HISTORY AND PHYSICAL PRESENTING COMPLAINT: * Chest pain. * Cardiac catheterization. HISTORY OF PRESENT ILLNESS: A 64-year-old female with obesity, hypertension, coronary artery disease, who was admitted after undergoing an elective cardiac catheterization. The patient has history of chronic angina, was brought to the hospital for elective procedure. The patient found with obstructive lesion, but unfortunately developed dissection and stent could not be deployed. The patient is now admitted for observation. No shortness of breath, no palpitation, no orthopnea. PAST MEDICAL HISTORY: * Dyslipidemia. * Coronary artery disease. * Obesity. * Hypertension. * Hypothyroidism. * Chronic tobacco use. PAST SURGICAL HISTORY: * PCI. * Thyroidectomy. * Bilateral cataract extraction. ALLERGIES: No known drug allergy. CURRENT MEDICATIONS: Reviewed. SOCIAL HISTORY: Lives with her . Recently quit tobacco use about a week ago. FAMILY HISTORY: Noncontributory. REVIEW OF SYSTEMS: Greater than 10 systems were reviewed, negative except as documented above. PHYSICAL EXAMINATION: GENERAL: Elderly female, awake. VITAL SIGNS: Temperature 97.5, pulse 87, respiratory rate 16, BP 130/60. EYES: No icterus. Pupils equal and reactive. HENT: No oral thrush seen. Moist oral mucosa. NECK: Supple, no JVD or thyromegaly. LUNGS: Good air entry. No rales, no rhonchi. CARDIOVASCULAR: S1, S2 regular. No murmur heard. ABDOMEN: Obese, soft, nontender. Bowel sounds present. CENTRAL NERVOUS SYSTEM: Awake, alert, oriented x 3. No focal deficits. SKIN: No rashes, no itchiness. LYMPHATIC: No peripheral lymphadenopathy. MUSCULOSKELETAL: No joint swelling, erythema or tenderness. BACK: No deformity, no pressure ulcer. LABORATORY DATA: Sodium 144, potassium 4.8, BUN 9, creatinine 0.7. WBC 10.8, hemoglobin 13.4, platelet 293. RADIOLOGY: Chest x-ray unremarkable. ASSESSMENT: A 64-year-old female admitted for observation after procedure. CURRENT PROBLEMS: Include, * Chronic angina. * Hypertension. * Hypothyroidism. * History of coronary artery disease. * Obesity. * Chronic tobacco use. PLAN: * The patient admitted to telemetry for observation. * Continue metoprolol. * Continue antiplatelet. * Continue Synthroid. * Continue antihypertensive. * Continue nutritional support. * The patient will be given nicotine patch. TID: [id number] RECEIPT: [id number] MTDD
== END 2024-05-12 13:00 | disposition home or self-care (01) ==
LOC: DAH 08:57 → DAHIP 08:58 → 2AH 17:25
PROVIDERS: ADMIT Internal Medicine Infectious Disease; ATTEND Internal Medicine Infectious Disease
DX: I25.119 Atherosclerotic heart disease of native coronary artery with unspecified angina pectoris (principal); I10 Essential (primary) hypertension; E66.9 Obesity, unspecified; E78.5 Hyperlipidemia, unspecified; I25.82 Chronic total occlusion of coronary artery; E89.0 Postprocedural hypothyroidism; Z95.5 Presence of coronary angioplasty implant and graft; Z79.899 Other long term (current) drug therapy; Z72.0 Tobacco use; Z68.36 Body mass index [BMI] 36.0-36.9, adult
CPT/HCPCS: 80048 ×2; 83880; 85025; 85610; 85730; 36415 ×2; 71045; 93005 ×2; 93458; 92920; 96360; 96361; 85347 ×4; 85027; C1769 ×9; C1887 ×4; C1725 ×6; C1894; A4649; Q9965 ×3; G0378 ×23; J3010; J3490 ×3; J1644 ×4; J2250 ×2; J1327 ×2; Q9967 ×3; A4215; A4223 ×3; A4554; A4335; A4222; A6260; A4221; A4663; A4216; A6206; A4606; 99156; 99157; J0461

== ENCOUNTER 2024-05-14 19:04 | Emergency (ER) | payer OTHER ==
[~2024-05-14] VITALS: Ht 160 cm; Wt 89.8 kg
[~2024-05-14 19:04] MED LIST changes: +CLOP-31 PO; +METO50TA9 PO
[2024-05-14 19:05] VITALS: TEMP 97.7
[2024-05-14] MEDS ORDERED: IOHEXOL-350 75 ML VIAL IV ONE (19:05)
--- NOTE | 2024-05-14 19:10 | ERN ---
ED Note History of Present Illness Stated Complaint: CHEST PAIN Chief Complaint: Chest Pain Time Seen by MD: 19:07 Dictation: PATIENT IS A 64-YEAR-OLD FEMALE COMING IN WITH COMPLAINTS OF ANTERIOR CHEST PAIN NONRADIATING SHE HAS HAD FOR SEVERAL DAYS. NO FEVER NO CHILLS NO NAUSEA VOMITING NO SOB. SHE IS STATUS POST A HEART CATHETERIZATION BY DR. JUSTA MILLS THROUGH HER WRIST LAST WEEK.. PATIENT STATES IT HEART CATHETERIZATION WAS ON THE 8TH AND THEY WENT THROUGH HER RIGHT WRIST AND THE ARM HAS BEEN SWOLLEN AND TENDER SINCE THE PROCEDURE. ADDITIONALLY SHE HAS BEEN HAVING SUBSTERNAL CHEST PRESSURE SINCE THE PROCEDURE HOWEVER DID NOT TELL THE NURSES OR DR. MILLS. Allergies: Coded Allergies: dexamethasone (Verified Allergy, Unknown, 08/24/13) Home Meds Reported Medications Clopidogrel Bisulfate (Plavix) 75 Mg Tablet, 75 MG PO AM, TAB 05/11/24 Metoprolol Succinate (Toprol Xl) 50 Mg Tab.er.24h, 50 MG PO BID, TAB 05/11/24 Gabapentin (Neurontin) 300 Mg Capsule, 300 MG PO BID, CAP 05/09/24 Folic Acid/Vitamin B Comp W-C (Super B-Complex Folic-Vit C Tb) 400 Mcg Tablet, 400 MCG PO HS, TAB 10/15/22 Omeprazole (Omeprazole) 40 Mg Capsule.dr, 40 MG PO HS, CAP 10/15/22 Simvastatin (Simvastatin) 40 Mg Tablet, 40 MG PO HS, TAB 04/06/20 Levothyroxine Sodium (Euthyrox) 125 Mcg Tablet, 125 MCG PO ACBKFST, TAB 04/06/20 Discontinued Reported Medications Aspirin (Ecotrin) 325 Mg Tablet.dr, 325 MG PO HS, TAB 05/09/24 Metoprolol Tartrate (Metoprolol Tartrate) 25 Mg Tablet, 25 MG PO HS, TAB 04/06/20 Metoprolol Tartrate (Metoprolol Tartrate) 50 Mg Tablet, 50 MG PO AM, TAB 04/06/20 Chlorpheniramine Maleate (Chlorpheniramine Maleate) 4 Mg Tablet, 4 MG PO BID, TAB 10/15/22 Ibuprofen (Ibuprofen) 800 Mg Tablet, 800 MG PO Q6H PRN for PAIN, TAB 04/07/20 Discontinued Scripts Pantoprazole Sodium (Pantoprazole Sodium) 20 Mg Tablet.dr, 20 MG PO DAILYBKFST, #30 TAB 0 Refills Prov:IRA CEDEÑO [facility] 10/17/22 Aspirin (ASPIRIN 81MG CHEW TAB) 81 Mg Tab.chew, 81 MG PO DAILY, #30 TAB.CHEW Prov:IRA CEDEÑO [facility] 10/17/22 Past Medical History Past Medical History: High Cholesterol, Hypertension Additional Past Medical Hx: CYST RT KIDNEY Surgical History: Other Surgical History Other: THYROIDECTOMY, HEART STENT, NECK Social History: Smokers History: Not Applicable RN Note Reviewed/Agreed w/PFSH: Yes Review of System Dictation CONSTITUTIONAL: NEGATIVE EXCEPT FOR HPI HEAD/FACE: NEGATIVE EXCEPT FOR HPI EENT: NEGATIVE EXCEPT FOR HPI RESPIRATORY: NEGATIVE EXCEPT FOR HPI SUBSTERNAL CHEST PRESSURE NONRADIATING GASTROINTESTINAL/ABDOMINAL: NEGATIVE EXCEPT FOR HPI GENITOURINARY: NEGATIVE EXCEPT FOR HPI MUSCULOSKELETAL: NEGATIVE EXCEPT FOR HPI RIGHT ARM PAIN SWELLING DISTAL MICHAEL ROVASCULAR CMS INTACT INTEGUMENTARY: NEGATIVE EXCEPT FOR HPI NEUROLOGICAL/PSYCH: NEGATIVE EXCEPT FOR HPI HEMATOLOGIC/LYMPHATIC: NEGATIVE EXCEPT FOR HPI ALL SYSTEMS NEGATIVE, EXCEPT NOTED ABOVE. 13 POINT REVIEW OF SYSTEMS ASSESSED AND ALL NEGATIVE EXCEPT FOR ABOVE. Initial Vital Sign VS Vital Signs Date Time Temp Pulse Resp B/P (MAP) Pulse Ox O2 Delivery O2 Flow Rate FiO2 05/14/24 19:05 97.7 109 20 163/127 96 Room Air 05/14/24 19:29 0 21 Physical Exam Dictation VITAL SIGNS REVIEWED GENERAL APPEARANCE: ALERT, ORIENTED X 3, MODERATE ACUTE DISTRESS, WELL DEVELOPED, NOURISHED. HEAD AND FACE: NON-TRAUMATIC. EYES: PERRL, PINK CONJUNCTIVAS, EYELID NO TRAUMA, ANTERIOR CHAMBER WITH ARCUS SENILIS. EARS: PINNAS INTACT AND NO SIGNS OF TRAUMA OR ERYTHEMA EAR CANALS CLEAR AND NO DISCHARGE TM NO ERYTHEMA NOSE: NO DISCHARGE, NO BLEEDING. OROPHARYNX: MOUTH NORMAL, TONGUE PINK, PHARYNX CLEAR,NO ERYTHEMA, TONSILS NO EXUDATES, NO ABSCESSES NOTED, MUCOUS MEMBRANE MOIST NECK: SUPPLE, NON-TENDER, NO THYROMEGALY, NO MASSES, NO JVD, NO BRUITS BREAST:DEFERRED CHEST:NO TENDERNESS, NO CREPITUS, NO PARADOXICAL MOVEMENT, NO RETRACTIONS LUNGS:CLEAR, WELL-VENTILATED, SYMMETRIC, NO RALES, NO WHEEZING, NO RHONCHI, NO STRIDOR, GOOD BREATH SOUNDS BILATERALLY HEART: REGULAR RATE, REGULAR RHYTHM, NO MURMUR, NO GALLOPS VASCULAR: NO PERIPHERAL EDEMA, ABDOMEN: SOFT, POSITIVE BOWEL SOUNDS, NONDISTENDED, NO GUARDING, NONTENDER, NO REBOUND, NO MASSES NO HEPATOMEGALY, NO SPLENOMEGALY, NO OLSEN'S SIGN, NO HERNIAS. RECTAL: DEFERRED GENITAL: DEFERRED NEUROLOGICAL: NORMAL SPEECH, MOTOR FUNCTION INTACT, SENSORY FUNCTION INTACT MUSCULOSKELETAL: NECK NONTENDER, FULL RANGE OF MOTION, BACK NONTENDER, FULL RANGE OF MOTION, EXTREMITIES: MILD SWELLING TO DISTAL RIGHT FOREARM. CAP REFILL LESS THAN 2 SE CONDS PALMAR CIRCULATION IS INTACT COLOR NORMAL SKIN: COLOR PINK, DRY, NO TURGOR, NO RASH, NO LACERATIONS, NO ABRASIONS, NO CONTUSIONS. LYMPHATIC: DEFERRED Results (Laboratory/Radiology) Laboratory/Radiology Laboratory Tests Test 05/14/24 19:20 White Blood Count 9.8 K/uL (4.8-10.8) Red Blood Count 4.85 MIL/uL (4.00-5.50) Hemoglobin 13.8 g/dL (12.0-16.0) Hematocrit 43.4 % (36-48) Mean Corpuscular Volume 89.5 fL (79-99) Mean Corpuscular Hemoglobin 28.5 pg (27.0-33.0) Mean Corpuscular Hemoglobin Concent 31.8 g/dL (32.0-36.0) L Red Cell Distribution Width 14.6 % (11.0-15.5) Platelet Count 312 K/uL (130-400) Mean Platelet Volume 9.1 fL (7.5-10.5) Immature Granulocyte % (Auto) 0.3 % (0-1) Neutrophils (%) (Auto) 46.8 % (40.0-77.0) Lymphocytes (%) (Auto) 39.5 % (21.0-51.0) Monocytes (%) (Auto) 11.1 % (3.0-13.0) Eosinophils (%) (Auto) 1.6 % (0.0-8.0) Basophils (%) (Auto) 0.7 % (0.0-5.0) Neutrophils # (Auto) 4.6 K/uL (1.8-7.7) Lymphocytes # (Auto) 3.9 K/uL (1.0-4.8) Monocytes # (Auto) 1.1 K/uL (0.1-1.0) H Eosinophils # (Auto) 0.16 K/uL (0.00-0.70) Basophils # (Auto) 0.07 K/uL (0.00-0.20) Absolute Immature Granulocyte (auto 0.03 K/uL (0-1) Nucleated Red Blood Cells 0.0 % (0.0-0.19) D-Dimer Quantitative (PE/DVT) 917 ng/mL (0-500) *H Sodium Level 143 mmol/L (136-145) Potassium Level 3.6 mmol/L (3.5-5.1) Chloride Level 104 mmol/L (101-111) Carbon Dioxide Level 30 mmol/L (21-32) Blood Urea Nitrogen 14 mg/dL (7-18) Creatinine 0.8 mg/dL (0.5-1.0) Glomerular Filtration Rate Calc 81 mL/min (>90) Random Glucose 138 mg/dL (70-105) H Total Calcium 9.0 mg/dL (8.5-10.1) Magnesium Level 1.80 mg/dL (1.80-2.40) Troponin I High Sensitivity 30 ng/L (4-50) B-Type Natriuretic Peptide 8 pg/mL (0-100) CT CHEST PE PROTOCOL WWO CONT HISTORY: Chest pain COMPARISON: 03/27/2024 TECHNIQUE: CT angiography of the chest was performed. The study was performed using angiographic technique with maximum intensity projection reconstruction images. Patient was given 75 cc of Omnipaque through intravenous route. FINDINGS: No CT evidence of filling defect is seen to suggest pulmonary embolus. No CT evidence of aortic dissection is seen. There are mild interstitial fibrosis. No evidence of parenchymal disease is seen. No CT evidence of pleural effusion or pericardial effusion is seen. The heart is enlarged. No evidence of adrenal mass is seen. Degenerative changes of the spine are noted. IMPRESSION: 1. No CT evidence of acute pulmonary embolus is seen. US VENOUS DOPPLER UNILATERAL INDICATION: Swelling. RIGHT ARM SWELLING STATUS POST HEART CATHETERIZATION 05/11 TECHNIQUE: Real-time venous Doppler ultrasound was performed using B mode, color flow and spectral analysis. FINDINGS: The visualized subclavian, axillary, cephalic, basilic and brachial veins demonstrate normal compressibility and flow without evidence of DVT. IMPRESSION: No evidence of DVT in the visualized right extremity. INDICATION: CHEST PAIN TECHNIQUE: CHEST 1VW COMPARISON: 05/09/2024 FINDINGS/IMPRESSION: Prominent bilateral interstitial markings which may represent bronchitis or vascular congestion in the proper clinical setting. Cardiac silhouette is within normal limits. Mild degenerative changes of the spine. The visualized upper abdomen appears unremarkable. Labs Reviewed?: Yes EKG Comment: EKG SINUS TACHYCARDIA/HEART RATE 108/AXIS NORMAL/RIGHT BUNDLE BRANCH BLOCK ED Course ED Course Orders Procedure Category Date Status Time Cbc With Differential LAB 05/14/24 Complete 19:08 B-Type Natriuretic LAB 05/14/24 Complete Peptide 19:08 Chest 1vw RAD 05/14/24 Resulted 19:08 12 Lead Ekg Tracing- EKG 05/14/24 Logged Technical 19:08 Magnesium LAB 05/14/24 Complete 19:08 Troponin I High LAB 05/14/24 Complete Sensitivity 19:08 Basic Metabolic Panel LAB 05/14/24 Complete 19:08 Nitroglycerin 0.4mg PHA 05/14/24 In Process Sl Tab (Nitrostat) 19:30 Us Venous Doppler US 05/14/24 Resulted Unilateral 19:21 Morphine 2mg Syg PHA 05/14/24 Complete (Morphine 2mg Syg) 20:00 D-Dimer LAB 05/14/24 Complete 20:00 Ct Chest Pe Protocol CT 05/14/24 Resulted Wwo Cont 20:38 Current Medications Medications (Trade) Dose Ordered Sig/Sonal Route PRN Reason Start Time Stop Time Status Last Admin Dose Admin Morphine Sulfate (morPHINE 2MG SYG) 2 mg ONCE ONCE IVP 05/14/24 20:00 05/14/24 20:01 DC 05/14/24 19:59 Nitroglycerin (Nitrostat) 0.4 mg Q5M PRN SL CHEST PAIN 05/14/24 19:30 05/14/24 19:49 Vital Signs Date Time Temp Pulse Resp B/P (MAP) Pulse Ox O2 Delivery O2 Flow Rate FiO2 05/14/24 22:15 91 16 123/67 97 Nasal Cannula* 2 05/14/24 21:12 100 16 128/69 99 Nasal Cannula* 2 05/14/24 20:01 104 16 109/57 97 Nasal Cannula* 2 05/14/24 19:45 113 22 111/67 92 Room Air* 0 05/14/24 19:29 107 18 151/79 96 Room Air* 0 05/14/24 19:05 97.7 109 20 163/127 96 Room Air 2255/PATIENT IS HEMODYNAMICALLY STABLE, HEART RATE 98. PATIENT IS ON METOPROLOL ER 50 MG DAILY JUST STARTED TWO DAYS AGO. SHE IS AWARE OF ALL FINDINGS INCLUDING CT OF THE CHEST, CHEST X-RAY EKG AND ULTRASOUND OF HER RIGHT ARM. SHE HAD DO NOT WISH TO STAY IN THE HOSPITAL SHE SAID SHE WOULD LIKE TO GO HOME SHE AGREED THAT SHE WOULD COME BACK IF ANY CHANGES IN THE PAIN HOWEVER AT THIS POINT IT IS 2/10 AND SHE WOULD LIKE TO GO HOME. ALSO PATIENT STATES THAT SHE GOT TWO DOSES OF NITROGLYCERIN WHICH DID NOT HELP HER CHEST PAIN, SHE SAID THE MORPHINE DID BRING HER PAIN DOWN FROM A SIX DOWN TO A TWO Medical Decision Making MDM MDM: DIFFERENTIAL DIAGNOSIS: ACS/AMI/PE/ELECTROLYTE IMBALANCE/DEHYDRATION/PNEUMO LOVE/BRONCHITIS/DVT RIGHT ARM RATIONALE: TESTS CONSIDERED AND ORDERED SECONDARY TO SHARED DECISION MAKING INCLUDE: EKG/LABS/RADIOLOGY PREVIOUS OUTSIDE RECORDS REVIEWED: OLD ER VISITS. REVIEWED RISK OF COMPLICATION AND/OR MORBIDITY OR MORTALITY OF PATIENT MANAGEMENT: NONE MEDICATIONS-PER MEDICATION RECONCILIATION NEED FOR HOSPITALIZATION: PATIENT DOES NOT MEET CRITERIA FOR HOSPITALIZATION. PATIENT DOES NOT WISH TO STAY IN THE HOSPITAL, AT BEDSIDE AND HE AGREES NEED FOR EMERGENCY MAJOR/MINOR SURGERY: NO THERE ARE NO SOCIAL CONCERNS WITH THIS PATIENT. PRESCRIPTION DRUG MANAGEMENT PRESCRIPTIONS WILL INCLUDE SYMPTOMATIC CARE PATIENT'S PRIOR EXTERNAL MEDICAL RECORDS FROM OTHER ER VISITS WERE REVIEWED BY ME INDICATED. PRIOR TESTING AND RESULTS FROM PREVIOUS VISITS WERE REVIEWED. PRIOR TESTS WERE TAKEN INTO ACCOUNT WITH MEDICAL DECISION MAKING AND RESOURCE UTILIZATION, INDEPENDENT HISTORIAN/HISTORIANS WERE USED TO OBTAIN COMPLETE MEDICAL HISTORY. I INDEPENDENTLY INTERPRETED THE TEST THAT WERE PERFORMED, RESULTS WERE REVIEWED BY ME AND CONSIDERED FINDINGS ON RADIOLOGY IF ORDERED. MEDICAL MANAGEMENT AND EXAMINATION INTERPRETATION DISCUSSIONS WERE HAD BY ME WITH OTHER QUALIFIED HEALTHCARE PROFESSIONALS INDICATED FOR THE PATIENT'S CARE. DX & DISP Disposition: Discharge Departure Impression: Primary Impression: Chest pain Additional Impressions: Right arm pain, Elevated d-dimer Condition: Stable Scripts Acetaminophen with Codeine (Acetaminophen-Cod #3 Tablet) 300 Mg-30 Mg Tablet 1 TAB PO Q4H PRN for [id number] PAIN, #15 TAB 0 Refills Prov: NOLBERTO JACOB MEDICAL BILLING AND CODING INSTRUCTOR 05/14/24 Additional Instructions: Follow-up with primary care provider in 1 to 2 days. Take medications as directed here in the emergency room. Okay to continue home medications unless otherwise discussed during your visit in the emergency room today. Return to your nearest emergency room if symptoms worsen or if there is no improvement. Call 911 if you need immediate assistance. Take Tylenol or Motrin [id number] as needed and if no contraindications are present. Increase oral hydration. A wound culture or urine culture was ordered here in the emergency room department please follow-up with primary care provider and advise them to get repeat ports from our facility. If you had any Niko wrap/splints that were applied here, please do not remove them until you see your primary care or specialty. Continue all medications and treatments at home. Take Tylenol with codeine for moderate pain. Keep your appointment with your automotive service advisor's on Thursday. Return to the emergency room immediately if any changes in the chest pain, shortness a breath or nausea vomiting. Referrals: LIDIA OSCAR MD (PCP) Time of Disposition: 22:57 I have reviewed the case, and I agree with, Diagnosis and Plan NOLBERTO JACOB NP May 14, 2024 19:10
[2024-05-14 19:33] LABS: BASOPHILS # (AUTO) 0.07 K/uL (0.00-0.20); BASOPHILS % (AUTO) 0.7 % (0.0-5.0); EOSINOPHILS # (AUTO) 0.16 K/uL (0.00-0.70); EOSINOPHILS % (AUTO) 1.6 % (0.0-8.0); HEMATOCRIT 43.4 % (36-48); IMMATURE GRANULOCYTE ABSOLUTE 0.03 K/uL (0-1); LYMPHOCYTES # (AUTO) 3.9 K/uL (1.0-4.8); LYMPHOCYTES % (AUTO) 39.5 % (21.0-51.0); MEAN CORPUSCULAR HEMOGLOBIN 28.5 pg (27.0-33.0); MEAN CORPUSCULAR HGB CONC 31.8 g/dL (32.0-36.0); MEAN CORPUSCULAR VOLUME 89.5 fL (79-99); MONOCYTES # (AUTO) 1.1 K/uL (0.1-1.0); MONOCYTES % (AUTO) 11.1 % (3.0-13.0); NEUTROPHILS # (AUTO) 4.6 K/uL (1.8-7.7); NEUTROPHILS % (AUTO) 46.8 % (40.0-77.0); PLATELET COUNT (AUTO) 312 K/uL (130-400); RED BLOOD CELL COUNT(AUTO) 4.85 MIL/uL (4.00-5.50); RED CELL DISTRIBUTION WIDTH 14.6 % (11.0-15.5); WHITE BLOOD COUNT (AUTO) 9.8 K/uL (4.8-10.8)
[2024-05-14] MEDS: NITROGLYCERIN 0.4 MG SL TAB SL PRN (19:39)
[2024-05-14 19:43] LABS: CREATININE 0.8 mg/dL (0.5-1.0); MAGNESIUM 1.8 mg/dL (1.80-2.40); POTASSIUM 3.6 mmol/L (3.5-5.1)
--- NOTE | 2024-05-14 19:49 | HMCIMG ---
INDICATION: CHEST PAIN TECHNIQUE: CHEST 1VW COMPARISON: 05/09/2024 FINDINGS/IMPRESSION: Prominent bilateral interstitial markings which may represent bronchitis or vascular congestion in the proper clinical setting. Cardiac silhouette is within normal limits. Mild degenerative changes of the spine. The visualized upper abdomen appears unremarkable.
[2024-05-14 19:53] LABS: B-TYPE NATRIURETIC PEPTIDE 8 pg/mL (0-100)
[2024-05-14] MEDS: morPHINE 2 MG SYG IVP ONE (19:59)
--- NOTE | 2024-05-14 20:21 | HMCIMG ---
US VENOUS DOPPLER UNILATERAL INDICATION: Swelling. RIGHT ARM SWELLING STATUS POST HEART CATHETERIZATION 05/11 TECHNIQUE: Real-time venous Doppler ultrasound was performed using B mode, color flow and spectral analysis. FINDINGS: The visualized subclavian, axillary, cephalic, basilic and brachial veins demonstrate normal compressibility and flow without evidence of DVT. IMPRESSION: No evidence of DVT in the visualized right extremity.
[2024-05-14 22:15] VITALS: BP 123/67; PULSE 91; RESP 16; O2SAT 97
--- NOTE | 2024-05-14 22:16 | HMCIMG ---
CT CHEST PE PROTOCOL WWO CONT HISTORY: Chest pain COMPARISON: 03/27/2024 TECHNIQUE: CT angiography of the chest was performed. The study was performed using angiographic technique with maximum intensity projection reconstruction images. Patient was given 75 cc of Omnipaque through intravenous route. FINDINGS: No CT evidence of filling defect is seen to suggest pulmonary embolus. No CT evidence of aortic dissection is seen. There are mild interstitial fibrosis. No evidence of parenchymal disease is seen. No CT evidence of pleural effusion or pericardial effusion is seen. The heart is enlarged. No evidence of adrenal mass is seen. Degenerative changes of the spine are noted. IMPRESSION: 1. No CT evidence of acute pulmonary embolus is seen. CT was performed with one or more following dose reduction techniques: automated exposure control, adjustment of the mA and kv according to patient's size, or use of a iterative reconstruction technique.
[2024-05-14] MEDS ORDERED: ACET-2079 PO (22:58)
--- NOTE | 2024-05-15 15:40 | EKG ---
[facility] Test Date: 2024-05-14 Test Time: 19:11:19 Pat Name: GUERO GILLESPIE Department: ED Room: Gender: F Vascular Technician: [id number] : [id number] Requested By: NOLBERTO JACOB Order Number: [id number] Reading MD: Charlie James Measurements Intervals [place] Rate: 108 P: 50 MD: 117 QRS: 61 QRSD: 147 T: -60 QT: 377 QTc: 506 Interpretive Statements Sinus tachycardia Right bundle branch block Compared to ECG 05/11/2024 11:08:12 Myocardial infarct finding now present Sinus rhythm no longer present Electronically Signed On 05-16-2024 21:35:06 COMMUNICATIONS EQUIPMENT OPERATOR by Charlie aJmes Please click the below link to view image of tracing.
== END 2024-05-14 23:06 | disposition home or self-care (01) ==
LOC: EDH 19:04
DX: R07.89 Other chest pain (principal); M79.601 Pain in right arm; R79.89 Other specified abnormal findings of blood chemistry; E78.00 Pure hypercholesterolemia, unspecified; F17.200 Nicotine dependence, unspecified, uncomplicated; I10 Essential (primary) hypertension; I45.10 Unspecified right bundle-branch block; Z79.82 Long term (current) use of aspirin; Z79.899 Other long term (current) drug therapy; Z90.89 Acquired absence of other organs; Z95.5 Presence of coronary angioplasty implant and graft
CPT/HCPCS: 99285; 71270; 93971; 71045; 83735; 84484; 80048; 83880; 85025; 85378; 36415; 93005; 96372; J2270; Q9967

== ENCOUNTER 2024-09-17 10:49 | Emergency (ER) | payer OTHER ==
[~2024-09-17] VITALS: Ht 160 cm; Wt 93.4 kg
[~2024-09-17 10:49] MED LIST changes: +ACET-2079 PO; -ASPI-1146 PO; -METO25TA6 PO; -METO50TA18 PO
[2024-09-17 11:25] LABS: BASOPHILS # (AUTO) 0.07 K/uL (0.00-0.20); BASOPHILS % (AUTO) 0.8 % (0.0-5.0); EOSINOPHILS # (AUTO) 0.17 K/uL (0.00-0.70); EOSINOPHILS % (AUTO) 1.9 % (0.0-8.0); HEMATOCRIT 42.8 % (36-48); IMMATURE GRANULOCYTE ABSOLUTE 0.03 K/uL (0-1); LYMPHOCYTES # (AUTO) 3.3 K/uL (1.0-4.8); LYMPHOCYTES % (AUTO) 36.8 % (21.0-51.0); MEAN CORPUSCULAR HEMOGLOBIN 27.9 pg (27.0-33.0); MEAN CORPUSCULAR HGB CONC 30.6 g/dL (32.0-36.0); MEAN CORPUSCULAR VOLUME 91.3 fL (79-99); MONOCYTES # (AUTO) 0.9 K/uL (0.1-1.0); MONOCYTES % (AUTO) 10.5 % (3.0-13.0); NEUTROPHILS # (AUTO) 4.4 K/uL (1.8-7.7); NEUTROPHILS % (AUTO) 49.7 % (40.0-77.0); PLATELET COUNT (AUTO) 286 K/uL (130-400); RED BLOOD CELL COUNT(AUTO) 4.69 MIL/uL (4.00-5.50); RED CELL DISTRIBUTION WIDTH 14.7 % (11.0-15.5); WHITE BLOOD COUNT (AUTO) 8.8 K/uL (4.8-10.8)
[2024-09-17 11:39] LABS: ALBUMIN 3.6 g/dL (3.5-5.0); BILIRUBIN,TOTAL 0.3 mg/dL (0.2-1.0); CREATININE 0.7 mg/dL (0.5-1.0); POTASSIUM 4.2 mmol/L (3.5-5.1); TOTAL PROTEIN, SERUM 7.7 g/dL (6.0-8.3)
--- NOTE | 2024-09-17 12:02 | ERN ---
ED Note History of Present Illness Stated Complaint: SWELLING TO LEFT FOOT AND BLACK TOES Chief Complaint: FOOT INJURY/PAIN Time Seen by MD: 10:54 Time Seen by Midlevel: 10:55 Dictation: 64-year-old female presents to the emergency department due to report of having pain to the 1st, 2nd and 3rd digit of the left foot. She states that this began two days ago. Currently, she denies having any fever associated with this. However, she rates her level of discomfort as he 6/10. Patient states that she did have a pedicure two weeks prior to the onset of this and believes that this might be related to that. She states that her concern is the level of swelling and redness that is present right now. Allergies: Coded Allergies: dexamethasone (Verified Allergy, Unknown, 08/24/13) Emergency Care CHILD SUPPORT AGENT: None Home Meds Active Scripts Acetaminophen with Codeine (Acetaminophen-Cod #3 Tablet) 300 Mg-30 Mg Tablet, 1 TAB PO Q4H PRN for [id number] PAIN, #15 TAB 0 Refills Prov:NOLBERTO JACOB FASHION JOURNALIST 05/14/24 Reported Medications Clopidogrel Bisulfate (Plavix) 75 Mg Tablet, 75 MG PO AM, TAB 05/11/24 Metoprolol Succinate (Toprol Xl) 50 Mg Tab.er.24h, 50 MG PO BID, TAB 05/11/24 Gabapentin (Neurontin) 300 Mg Capsule, 300 MG PO BID, CAP 05/09/24 Folic Acid/Vitamin B Comp W-C (Super B-Complex Folic-Vit C Tb) 400 Mcg Tablet, 400 MCG PO HS, TAB 10/15/22 Omeprazole (Omeprazole) 40 Mg Capsule.dr, 40 MG PO HS, CAP 10/15/22 Simvastatin (Simvastatin) 40 Mg Tablet, 40 MG PO HS, TAB 04/06/20 Levothyroxine Sodium (Euthyrox) 125 Mcg Tablet, 125 MCG PO ACBKFST, TAB 04/06/20 Past Medical History Past Medical History: High Cholesterol, Hypertension Additional Past Medical Hx: CYST RT KIDNEY Surgical History: Other Surgical History Other: THYROIDECTOMY, HEART STENT, NECK Social History: Smokers History: Not Applicable Review of System Dictation Constitutional: Negative for fever,chills, and weight loss Eyes: Negative for injury, pain,redness, and discharge ENT: Negative for injury,pain or swelling Cardiovascular: Negative for chest pain, palpitations, and edema Respiratory: Negative for shortness of breath, cough, and wheezing, Abdomen/GI: Negative for abdominal pain, nausea, vomiting, diarrhea, and constipation Back: Negative for injury and pain : Negative for injury, bleeding and discharge MS/Extremity: Pain and tenderness along with swelling of the 1st, 2nd and 3rd digits of the left foot. Skin: Erythema to the left foot at the 1st, 2nd and 3rd digit Neuro: Negative for headache, weakness, numbness, tingling, and seizure Psych: Negative for suicide ideation, homicidal ideation, and hallucinations Initial Vital Sign VS Vital Signs Date Time Temp Pulse Resp B/P (MAP) Pulse Ox O2 Delivery O2 Flow Rate FiO2 09/17/24 10:51 98.4 97 16 144/78 98 Room Air 09/17/24 10:51 0 21 Physical Exam Dictation GENERAL: AWAKE, ALERT, NAD HEAD/FACE: NORMOCEPHALIC, ATRAUMATIC EYES: PERRL, EOMI, VISION AT BASELINE ENT: BILATERAL NASAL CONGESTION, WHO RESUME HIS PHARYNX NECK: TRACHEA MIDLINE, SUPPLE, NO NUCHAL RIGIDITY CARDIOVASCULAR: RRR, NORMAL S1/S2, NO MRGS, NO JVD RESPIRATORY: SYMMETRICAL, NONLABORED, SCATTERED RHONCHI. ABDOMEN: SOFT, NON-TENDER, NON-DISTENDED, NORMAL BOWEL SOUNDS, NO GUARDING OR REBOUND. SKIN: WARM, DRY, NORMAL TURGOR, NO RASH MS/EXTREMITY: Swelling and tenderness to the distal portion of the 1st, 2nd and 3rd digit of the left foot. NEURO: COAX4, GCS 15, STRENGTH 5/5, CN 2-12 INTACT, NORMAL CEREBELLAR EXAM, NORMAL GAIT, PSYCH: NORMAL BEHAVIOR, MOOD, AND AFFECT NORMAL Results (Laboratory/Radiology) Laboratory/Radiology Laboratory Tests Test 09/17/24 11:15 09/17/24 12:17 White Blood Count 8.8 K/uL (4.8-10.8) Red Blood Count 4.69 MIL/uL (4.00-5.50) Hemoglobin 13.1 g/dL (12.0-16.0) Hematocrit 42.8 % (36-48) Mean Corpuscular Volume 91.3 fL (79-99) Mean Corpuscular Hemoglobin 27.9 pg (27.0-33.0) Mean Corpuscular Hemoglobin Concent 30.6 g/dL (32.0-36.0) L Red Cell Distribution Width 14.7 % (11.0-15.5) Platelet Count 286 K/uL (130-400) Mean Platelet Volume 8.9 fL (7.5-10.5) Immature Granulocyte % (Auto) 0.3 % (0-1) Neutrophils (%) (Auto) 49.7 % (40.0-77.0) Lymphocytes (%) (Auto) 36.8 % (21.0-51.0) Monocytes (%) (Auto) 10.5 % (3.0-13.0) Eosinophils (%) (Auto) 1.9 % (0.0-8.0) Basophils (%) (Auto) 0.8 % (0.0-5.0) Neutrophils # (Auto) 4.4 K/uL (1.8-7.7) Lymphocytes # (Auto) 3.3 K/uL (1.0-4.8) Monocytes # (Auto) 0.9 K/uL (0.1-1.0) Eosinophils # (Auto) 0.17 K/uL (0.00-0.70) Basophils # (Auto) 0.07 K/uL (0.00-0.20) Absolute Immature Granulocyte (auto 0.03 K/uL (0-1) Nucleated Red Blood Cells 0.0 % (0.0-0.19) Red Blood Cell Morphology See comments Erythrocyte Sedimentation Rate 25 MM/HR (0-30) Sodium Level 141 mmol/L (136-145) Potassium Level 4.2 mmol/L (3.5-5.1) Chloride Level 103 mmol/L (101-111) Carbon Dioxide Level 29 mmol/L (21-32) Blood Urea Nitrogen 6 mg/dL (7-18) L Creatinine 0.7 mg/dL (0.5-1.0) Glomerular Filtration Rate Calc 95 mL/min (>90) Random Glucose 95 mg/dL (70-105) Total Calcium 8.8 mg/dL (8.5-10.1) Total Bilirubin 0.3 mg/dL (0.2-1.0) Aspartate Amino Transf (AST/SGOT) 21 U/L (10-37) Alanine Aminotransferase (ALT/SGPT) 20 U/L (12-78) Alkaline Phosphatase 80 U/L (50-136) C-Reactive Protein, Quantitative 9.70 mg/L (0.5-3.0) H Total Protein 7.7 g/dL (6.0-8.3) Albumin 3.6 g/dL (3.5-5.0) Urine Color COLORLESS (YELLOW) Urine Appearance CLEAR (CLEAR) Urine pH 6.0 (5.0-8.0) Urine Specific [place] 1.003 (1.001-1.031) Urine Protein NEGATIVE mg/dL (NEGATIVE) Urine Glucose (UA) NEGATIVE mg/dL (NEGATIVE) Urine Ketones NEGATIVE mg/dL (NEGATIVE) Urine Occult Blood NEGATIVE (NEGATIVE) Urine Nitrate NEGATIVE (NEGATIVE) Urine Bilirubin NEGATIVE mg/dL (NEGATIVE) Urine Urobilinogen 0.2 mg/dL (0.2-1.0) Urine Leukocyte Esterase NEGATIVE Shahrzad/uL Labs Reviewed?: Yes X-RAY Comment: Three-view x-ray of the left foot with no cortical anomalies as interpreted by me. The ultrasound of the left no leg which is arterial revealed a monophasic waveform. ED Course ED Course Orders Procedure Category Date Status Time Cbc With Differential LAB 09/17/24 Complete 11:04 Comprehensive LAB 09/17/24 Complete Metabolic Panel 11:04 Erythrocyte LAB 09/17/24 Complete Sedimentation Rate 11:04 Crp Quantitative LAB 09/17/24 Complete 11:04 Saline Lock Iv CPOE 09/17/24 Transmitted 11:04 Us Arterial Unila Low US 09/17/24 Resulted Ext Dupl 11:04 Ketorolac PHA 09/17/24 Complete Tromethamine 15mg/Ml 11:30 Foot Comp 3+Vws Lt RAD 09/17/24 Taken 11:19 Urinalysis Profile LAB 09/17/24 Complete 12:20 Clindamycin Ivpb PHA 09/17/24 Complete 300mg/50ml (Cleocin 13:30 Current Medications Medications (Trade) Dose Ordered Sig/Sonal Route PRN Reason Start Time Stop Time Status Last Admin Dose Admin Clindamycin HCl/ Dextrose 50 ml @ 100 mls/hr ONCE ONCE IV 09/17/24 13:30 09/17/24 13:59 DC Ketorolac Tromethamine (toRADol) 15 mg ONCE ONCE IV 09/17/24 11:30 09/17/24 11:31 DC 09/17/24 12:24 Vital Signs Date Time Temp Pulse Resp B/P (MAP) Pulse Ox O2 Delivery O2 Flow Rate FiO2 09/17/24 12:33 97.9 77 18 137/80 96 Room Air* 0 21 09/17/24 10:51 98.4 9 16 144/78 98 Room Air* 0 21 09/17/24 10:51 98.4 97 16 144/78 98 Room Air Medical Decision Making MDM MDM: Differential diagnosis: Cellulitis, infected abrasion, osteomyelitis. Rationale: Tests considered and ordered secondary to shared decision making include: Previous outside records reviewed: Old ER visits. Risk of complication and/or morbidity or mortality of patient management: None Medications-Per medication reconciliation Need for hospitalization: Patient does not meet criteria for hospitalization. Need for emergency major/minor surgery: No There are no social concerns with this patient. Prescription drug management Prescriptions will include symptomatic care Patient's prior external medical records from other ER visits were reviewed by me as indicated. Prior testing and results from previous visits were reviewed. Prior tests were taken into account with medical decision making and resource utilization, independent historian/historians were used to obtain complete medical history. I independently interpreted the test that were performed, results were reviewed by me and considered findings on radiology if ordered. Medical management and examination interpretation discussions were had by me with other qualified healthcare professionals as indicated for the patient's care. DX & DISP Disposition: Discharge Departure Impression: Primary Impression: Cellulitis of toe of left foot Condition: Stable Scripts Clindamycin HCl (Clindamycin HCl) 300 Mg Capsule 1 CAP PO TID for 10 Days, #30 CAP 0 Refills Prov: RADHA LAM 09/17/24 Referrals: LIDIA OSCAR MD (PCP) RADHA LAM September 17, 2024 12:02
[2024-09-17] MEDS: ketOROlac 15MG/ML VIAL (15MG/ML) IV ONE (12:24)
[2024-09-17 12:35] LABS: APPEARANCE,URINE CLEAR (CLEAR); BILIRUBIN,URINE NEGATIVE (NEGATIVE); COLOR,URINE COLORLESS (YELLOW); GLUCOSE, URINE (UA) NEGATIVE (NEGATIVE); KETONES,URINE NEGATIVE (NEGATIVE); LEUKOCYTE ESTERASE ,URINE NEGATIVE Leu/uL (NEGATIVE); NITRATE,URINE NEGATIVE (NEGATIVE); OCCULT BLOOD,URINE NEGATIVE (NEGATIVE); PROTEIN,URINE NEGATIVE (NEGATIVE); UROBILINOGEN,URINE 0.2 mg/dL (0.2-1.0)
[2024-09-17 12:36] LABS: ADD UA MICROSCOPIC NO
[2024-09-17 12:57] LABS: ERYTHROCYTE SEDIMENTATION RATE 25 MM/HR (0-30)
--- NOTE | 2024-09-17 12:59 | HMCIMG ---
ULTRASOUND ARTERIAL DUPLEX LEFT LOWER EXTREMITY, UNILATERAL INDICATION: Left toes pain TECHNIQUE: Routine grayscale, color Doppler, and power Doppler ultrasound of the left lower extremity arteries were obtained. COMPARISON: 03/07/2024 FINDINGS: Velocities in cm/sec INFORMATION TECHNOLOGY PROJECT MANAGER: 31 SFA: Prox 37, Mid 49, Distal 53 Popliteal 28 proximally and 23 distally Anterior Tibial 19 distally Posterior Tibial 28 Dorsalis Pedis 12 Monophasic flow along the left lower extremity arterial system. IMPRESSION: Monophasic flow along the left lower extremity arterial system, without evidence for high-grade flow-rate limiting stenosis for occlusion. Parameters as reported.
[2024-09-17] MEDS ORDERED: CLIN-141 PO (14:11)
--- NOTE | 2024-09-17 14:27 | HMCIMG ---
LEFT FOOT RADIOGRAPHS - 3 VIEWS INDICATION: Toe pain COMPARISON: None FINDINGS: AP, lateral, and oblique views. No fracture or subluxation identified. Midfoot alignment is well maintained. Subcentimeter plantar calcaneal spur. Subcentimeter traction enthesophyte arises off the posterior calcaneus at the Achilles tendon attachment. IMPRESSION: No evidence for fracture or subluxation.
[2024-09-17] MEDS: CLINDAMYCIN IVPB 300MG/50ML 50 ML IV ONE (14:30)
[2024-09-17 14:33] VITALS: BP 148/76; PULSE 78; RESP 17; TEMP 98.1; O2SAT 99
--- NOTE | 2024-09-17 14:36 | NUR ---
PT STABLE NO DISTRESS VITALS WNL NO C/O PAIN NOW, PT GIVEN ANTIBIOTIC MEDICATION , DISCHARGE INSTRUCTIONS GIVEN VERBALIZED UNDERSTANDING, PT IV REMOVED CATHETER INTACT. PT TAKEN OUT IN W/C DRIVEN HOME BY .
== END 2024-09-17 15:15 | disposition home or self-care (01) ==
LOC: EDH 10:49
DX: L03.032 Cellulitis of left toe (principal); E78.00 Pure hypercholesterolemia, unspecified; F17.200 Nicotine dependence, unspecified, uncomplicated; I10 Essential (primary) hypertension; Z79.899 Other long term (current) drug therapy; Z88.8 Allergy status to other drugs, medicaments and biological substances; Z90.89 Acquired absence of other organs; Z95.5 Presence of coronary angioplasty implant and graft; Z98.890 Other specified postprocedural states
CPT/HCPCS: 99285; 96374; 93926; 96375; 80053; 85025; 85651; 86140; 81003; 36415; 73630; J1885; J3490